=== PATIENT | female | born 1960 | race Caucasian/White ===

== ENCOUNTER 2021-05-17 07:24 | Emergency (ER) | payer OTHER, SELFPAY ==
[2021-05-17 07:25] VITALS: BP 153/88; PULSE 85; RESP 16; TEMP 36.6; O2SAT 100; BMI 31.4
--- NOTE | 2021-05-17 07:35 | EX.ED.UPPERE ---
HPI History of Present Illness HPI Narrative: Patient presents with left wrist pain that began 5 days ago. Patient states that she was walking her dog which weighs approximately 100 pounds when the dog pulled on the leash and she felt pain in her wrist. Patient did not fall. Patient states her pain is worse with certain movements. Patient describes the pain as aching. Patient states she has been taking ibuprofen which has been helping with the pain. Patient denies any paresthesias or weakness. Chief Complaint: Upper Extremity Injury Informant: patient Occured/Mechanism Comment: Pulling injury Onset/Context/Timing Onset: Days (6) Timing: Continuous Quality of Pain: Aching Location: Left wrist Worsened by: Certain movements Relieved by: Ibuprofen Associated Symptoms Associated Symptoms: Negative for Parasthesia, Weakness and Loss of Funtion PFSH PFS Medical History Flat feet, bilateral Hypertension Home Medications lisinopril 20 mg PO DAILY 05/17/21 [History Last Taken Unknown] Allergy/AdvReac Type Severity Reaction Status Date / Time No Known Allergies Allergy Verified 05/17/21 07:27 Surgical History Hx of knee surgery Social History (Updated 05/17/21 @ 07:[address] Hector Wade DO) Smoking Status: Never smoker alcohol intake: current details: Occasional ROS ROS ED Constitutional Constitutional ED: Denies chills or fever(s) Eyes Eyes: Denies blurry vision or change in vision ENT ENT ED: Reports rhinorrhea and sore throat Cardiovascular Cardiovascular: Denies chest pain or palpitations Respiratory/Chest Respiratory/Chest: Denies cough or dyspnea Gastrointestinal Gastrointestinal: Denies nausea or vomiting Genitourinary Genitourinary ED: Denies dysuria or hematuria Musculoskeletal Musculoskeletal: Denies back pain or neck pain Integumentary Denies abscess or rash Neurologic Neurologic: Denies headache(s) or weakness Allergic/Immunologic Allergic/Immunologic ED: Denies mouth swelling or urticaria EXAM Physical Exam Const Vital Signs: 05/17/21 07:25 Temperature 97.9 F Temperature Source Temporal Pulse Rate 85 Respiratory Rate 16 Blood Pressure 153/88 H Blood Pressure Mean 109 Pulse Ox 100 Oxygen Delivery Method Room Air Positive well nourished and well developed General Appearance ED: well developed and NAD HEENT Reports moist mucous membranes Neck full ROM and supple Extremity Extremity Narrative: There is tenderness and mild edema over the dorsal and radial aspects of the left wrist. There is no obvious deformity. There is no bony crepitance or step-off. There is some mild tenderness of the anatomic snuffbox. Range of motion was limited in all motions of the left wrist secondary to pain. Sensation was intact to light touch in the radial, median, and ulnar areas. Strength is 5/5 in the radial, median, and ulnar areas. Radial pulses are equal bilaterally. Neuro oriented x3, CN's II-XII intact bilaterally, moves all extremities, no focal motor deficits and no sensory deficits noted Sensorium / Orientation: alert Psych mental status grossly normal MDM MDM MDM Narrative Medical decision making narrative: X-rays of the left wrist were obtained. There are 3 views. On my interpretation, there is no acute fracture. There is no dislocation. There is some mild soft tissue swelling. Radiologist also interpreted the x-rays and agrees. Patient was placed in a prefabricated thumb spica splint. Patient was instructed to ice and elevate the left wrist. Since she has tenderness over the anatomic snuffbox, patient was advised on the possibility of an occult scaphoid fracture even though she did not fall. Patient was instructed to follow-up with her primary care physician in 7 to 10 days for reevaluation. Patient was instructed to continue ibuprofen as needed for pain. Patient was instructed to return if worse in any way. Patient understood and was agreeable with the plan. All questions were answered. Discharge Plan Triage Chief Complaint: Upper Extremity Injury ED Provider: Hector Wade Dx/Rx/DC Orders Clinical Impression: Left wrist sprain Instructions: ED Wrist Sprain Prescriptions: No Action lisinopril 20 mg Tablet 20 mg PO DAILY RF: 0 Primary Care Provider: Juan Zuñiga Referrals: Juan Zuñiga DO [Primary Care Provider] - 1-2 Weeks Disposition Disposition: Home, Self Care
--- NOTE | 2021-05-17 07:42 | RAD_ITS ---
STUDY: X-RAY - LEFT WRIST REASON FOR EXAM: Female, 60 years old. Injury/Pain TECHNIQUE: 3 view(s) of the wrist were obtained. COMPARISON: None. FINDINGS: Normal visualized distal radius and ulna. Normal radiocarpal articulation. Normal distal radioulnar articulation. Normal carpal bones. Normal carpal articulations. Normal carpometacarpal articulation of the thumb. Normal second through fifth carpometacarpal articulations. Normal visualized metacarpal bones. The soft tissue structures are unremarkable. There is no demonstrated acute fracture. Small loose bodies, subchondral cystic changes, and cortical erosion is present in the radiocarpal articulation. RAD/Wrist min 3 Views IMPRESSION: Degenerative changes of the wrist Electronically Signed: Jasbir Jacques MD at 8:01 EST ,
== END 2021-05-17 08:59 | disposition home or self-care (01) ==
LOC: ED 08:11
PROVIDERS: Emergency Provider Emergency Medicine; PCP Family Medicine; Visit Provider Emergency Medicine
DX: S63.92XA Sprain of unspecified part of left wrist and hand, initial encounter (principal); I10 Essential (primary) hypertension; X50.9XXA Other and unspecified overexertion or strenuous movements or postures, initial encounter; Y93.K1 Activity, walking an animal; M21.41 Flat foot [pes planus] (acquired), right foot; M21.42 Flat foot [pes planus] (acquired), left foot
CPT/HCPCS: 73110; 99282